=== PATIENT | male | born 1995 | race Caucasian/White ===

== ENCOUNTER → 2017-12-19 | Outpatient (CLI) | payer OTHER | END | disposition home or self-care (01) | LOC: EDBD 10:03 → MRI 10:03 | DX: M25.562 Pain in left knee (principal) | CPT/HCPCS: 73721 ==

== ENCOUNTER → 2019-08-11 | Outpatient (CLI) | payer OTHER | END | disposition home or self-care (01) | LOC: MRI 10:16 | PROVIDERS: ATTEND Physical Medicine & Rehabilitation Sports Medicine | DX: M25.562 Pain in left knee (principal); S83.242A Other tear of medial meniscus, current injury, left knee, initial encounter | CPT/HCPCS: 73721 ==

== ENCOUNTER → 2019-08-20 | Outpatient (CLI) | payer OTHER | END | disposition home or self-care (01) | LOC: MAMO-SONO 09:15 → SONOGRAMA 09:16 | PROVIDERS: ATTEND Radiology Diagnostic Radiology | DX: M25.562 Pain in left knee (principal) ==